=== PATIENT | male | born 1995 | race Caucasian/White ===

== ENCOUNTER 2018-05-29 01:49 | Emergency (ER) | payer OTHER ==
[~2018-05-29] VITALS: Ht 167.6 cm; Wt 59.0 kg
--- OUTSIDE RECORDS SUMMARY | 2018-05-29 01:56 | XMS REPORT ---
Author Author Benja Tim Organization [facility] Address [facility] [place], [place] [id number] Care Team Providers Care Roll Threader Operator Name Role Phone Benja Tim Unavailable PROBLEMS Type Condition ICD9-CM Code [id number] Code Onset Dates Condition Status SNOMED Code Problem Underweight R63.6 Active 819412582 Problem Chronic depression F32.9 Active 012333996 Problem Attention deficit disorder (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 Active 26670081 ALLERGIES No Known Allergies ENCOUNTERS Encounter Location Date Diagnosis [facility] [address] [place] [address] Mar, [facility] [address] [place] [address] Dec, Attention deficit disorder (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 and Underweight R63.6 [facility] [address] [place] [address] Sep, Attention deficit disorder (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 and Underweight R63.6 [facility] [address] [place] [address] Jul, Attention deficit disorder (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 [facility] [address] [place] [address] June, Attention deficit disorder (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 and Underweight R63.6 [facility] [address] [place] [address] May, Attention deficit disorder (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 and Acute nasopharyngitis J00 [facility] [address] [place] [address] Mar, Attention deficit disorder (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 [facility] [address] [place] [address] Mar, [facility] [address] [place] [address] Mar, [facility] [address] [place] [address] Feb, [facility] [address] [place] [address] Feb, Acute bronchitis due to other specified organisms J20.8 ; Attention deficit disorder ( 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 and Chronic depression F32.9 [facility] [address] [place] [address] Feb, Attention deficit disorder (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 and Chronic depression F32.9 [facility] [address] [place] [address] Jan, Attention deficit disorder (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 and Chronic depression F32.9 [facility] [address] [place] [address] Dec, [facility] [address] [place] [address] 18 Dec, 2016 Acute bronchitis due to other specified organisms J20.8 IMMUNIZATIONS No Known Immunizations SOCIAL HISTORY Never Assessed REASON FOR VISIT Follow up PLAN OF CARE Activity Details Follow Up 3 Months Reason: VITAL SIGNS Height 66 in 2017-12-29 Weight 118.2 lbs 2017-12-29 BMI 19.08 kg/m2 2017-12-29 Temperature 98.3 degrees Fahrenheit 2017-12-29 Heart Rate 76 /min 2017-12-29 Respiratory Rate 16 /min 2017-12-29 Oximetry 97 % 2017-12-29 Blood pressure systolic 122 mm Hg 2017-12-29 Blood pressure diastolic 76 mm Hg 2017-12-29 MEDICATIONS Medication Instructions Dosage Frequency Start Date End Date Duration Status Albuterol Sulfate HFA 108 (90 Base) MCG/ACT Inhalation every 6 hrs 2 puffs as needed 6h Active Adderall 20 MG Orally twice a day 1 tablet (to fill 02/27/18 or later) Dec, 30 days Active Adderall 20 MG Orally twice a day 1 tablet (to fill 01/27/18 or later) Dec, 30 days Active Adderall 20 MG Orally twice a day 1 tablet Dec, 30 days Active RESULTS No Results PROCEDURES No Known procedures INSTRUCTIONS MEDICATIONS ADMINISTERED No Known Medications MEDICAL (GENERAL) HISTORY Type Description Date Medical History asthma Surgical History No know Surgical history Hospitalization History No know Hospitalization history
--- OUTSIDE RECORDS SUMMARY | 2018-05-29 01:56 | XMS REPORT ---
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 12667202 ALLERGIES No Known Allergies ENCOUNTERS Encounter Location Date Diagnosis [facility] [address] [place] [address] Dec, [facility] [address] [place] [address] Sep, Attention deficit disorder (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 and Underweight R63.6 [facility] [address] [place] [address] Jul, Attention deficit disorder (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 [facility] [address] [place] [address] June, Attention deficit disorder (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 and Underweight R63.6 [facility] [address] [place] [address] May, Attention deficit disorder (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 and Acute nasopharyngitis J00 [facility] [address] [place] [address] Mar, Attention deficit disorder (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 [facility] [address] [place] [address] Mar, [facility] [address] [place] [address] Mar, [facility] [address] [place] [address] Feb, [facility] [address] [place] [address] Feb, Acute bronchitis due to other specified organisms J20.8 ; Attention deficit disorder ( 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 and Chronic depression F32.9 [facility] [address] [place] [address] Feb, Attention deficit disorder (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 and Chronic depression F32.9 [facility] [address] [place] [address] Jan, Attention deficit disorder (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 and Chronic depression F32.9 [facility] [address] [place] [address] Dec, [facility] [address] [place] [address] Dec, Acute bronchitis due to other specified organisms J20.8 IMMUNIZATIONS No Known Immunizations SOCIAL HISTORY Never Assessed REASON FOR VISIT 3 month f/u PLAN OF CARE Activity Details Follow Up 3 Months Reason: VITAL SIGNS Height 66 in 2017-09-28 Weight 119 lbs 2017-09-28 BMI 19.21 kg/m2 2017-09-28 Temperature 98.3 degrees Fahrenheit 2017-09-28 Heart Rate 59 /min 2017-09-28 Respiratory Rate 16 /min 2017-09-28 Oximetry 98 % 2017-09-28 Blood pressure systolic 129 mm Hg 2017-09-28 Blood pressure diastolic 75 mm Hg 2017-09-28 MEDICATIONS Medication Instructions Dosage Frequency Start Date End Date Duration Status Adderall 20 MG Orally BID 1 tablet Sep, 30 days Active Albuterol Sulfate HFA 108 (90 Base) MCG/ACT Inhalation every 6 hrs 2 puffs as needed 6h Active Adderall 20 MG Orally twice a day 1 tablet (to fill 11/27/17 or later) Sep, Active Adderall 20 MG Orally twice a day 1 tablet (to fill 10/28/17 or later) Sep, Active RESULTS No Results PROCEDURES No Known procedures INSTRUCTIONS MEDICATIONS ADMINISTERED No Known Medications MEDICAL (GENERAL) HISTORY Type Description Date Medical History asthma Surgical History No know Surgical history Hospitalization History No know Hospitalization history
--- OUTSIDE RECORDS SUMMARY | 2018-05-29 01:56 | XMS REPORT ---
Author Author Lulu Leslie Organization [facility] Address [address] [place] [address] [place] [address] Care Team Providers Care President [employer] Name Role Phone Lulu Leslie Unavailable PROBLEMS Unknown Problems ALLERGIES No Information ENCOUNTERS Encounter Location Date Diagnosis [address] [place] [address] [place] [address] Mar Encounter for removal of sutures Z48.[address] [place] [address] [place] [address] Feb Neoplasm of uncertain behavior of skin D48.[address] [place] [address] Feb Furuncle of buttock L02.32 and Other viral warts B07.[address] [place] [address] [place] [address] [place] [address] Apr Furuncle of buttock L02.[address] [place] [address] June Furuncle of buttock L02.32 and Milia L72.0 IMMUNIZATIONS No Known Immunizations SOCIAL HISTORY Never Assessed REASON FOR VISIT Cyst not healing PLAN OF CARE VITAL SIGNS MEDICATIONS Unknown Medications RESULTS No Results PROCEDURES No Known procedures INSTRUCTIONS MEDICATIONS ADMINISTERED No Known Medications MEDICAL (GENERAL) HISTORY Type Description Date Medical History eczema Medical History asthma Surgical History No Surgical history information
--- OUTSIDE RECORDS SUMMARY | 2018-05-29 01:56 | XMS REPORT ---
Author Author Benja Tim Organization [facility] Address [address] [place], [place] [phone] Care Team Providers Care Five Roll Refiner Batch Mixer Name Role Phone Benja Tim Unavailable PROBLEMS Type Condition ICD9-CM Code WDT66-JR Code Onset Dates Condition Status SNOMED Code Problem Attention deficit disorder (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 Active 18404896 Problem Chronic depression F32.9 Active [id number] ALLERGIES No Information SOCIAL HISTORY Never Assessed PLAN OF CARE VITAL SIGNS MEDICATIONS Medication Instructions Dosage Frequency Start Date End Date Duration Status Promethazine-Codeine 6.25-10 MG/5ML Orally every 6 hrs PRN 5 ml as needed Feb, 2 Mar, 2017 6 days Active RESULTS No Results PROCEDURES No Known procedures IMMUNIZATIONS No Known Immunizations MEDICAL (GENERAL) HISTORY Type Description Date Medical History asthma
--- OUTSIDE RECORDS SUMMARY | 2018-05-29 01:56 | XMS REPORT ---
Author Author Dorene Piedra Organization [facility] Address [facility] [place] [address] Care Team Providers Care Instruction Librarian Name Role Phone Dorene Piedra Unavailable PROBLEMS Type Condition ICD9-CM Code [id number] Code Onset Dates Condition Status SNOMED Code Problem Chronic depression F32.9 Active 520104215 Problem Underweight R63.6 Active 165424818 Problem Attention deficit disorder (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 Active 85559125 ALLERGIES No Known Allergies ENCOUNTERS Encounter Location Date Diagnosis [facility] [address] [place] [address] Aug, [facility] [address] [place] [address] Apr, Heart palpitations R00.2 and Chest pain at rest R07.9 [facility] [address] [place] [address] Apr, Chest pain at rest R07.9 and Heart palpitations R00.2 [facility] [address] [place] [address] Apr, Attention deficit disorder (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 and Acute left-sided low back pain without sciatica M54.5 [facility] [address] [place] [address] Feb, Attention deficit disorder (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 [facility] [address] [place] [address] Dec, Attention deficit disorder (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 and Underweight R63.6 [facility] [address] [place] [address] Sep, Attention deficit disorder (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 and Underweight R63.6 [facility] [address] [place] [address] Jul, Attention deficit disorder (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 [facility] [address] [place] [address] June, Attention deficit disorder (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 and Underweight R63.6 [facility] [address] [place] [address] May, Attention deficit disorder (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 and Acute nasopharyngitis J00 [facility] [address] [place] [address] 26 Mar, 2017 Attention deficit disorder (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 [facility] [address] [place] [address] 08 Mar, 2017 [facility] [address] [place] [address] 07 Mar, 2017 [facility] [address] [place] [address] Feb, [facility] [address] [place] [address] Feb, Acute bronchitis due to other specified organisms J20.8 ; Attention deficit disorder ( 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 and Chronic depression F32.9 [facility] [address] [place] [address] Feb, Attention deficit disorder (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 and Chronic depression F32.9 [facility] [address] [place] [address] Jan, Attention deficit disorder (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 and Chronic depression F32.9 [facility] [place] [address] Dec, [facility] [address] [place] [address] Dec, Acute bronchitis due to other specified organisms J20.8 IMMUNIZATIONS No Known Immunizations SOCIAL HISTORY Never Assessed REASON FOR VISIT chest pain PLAN OF CARE Activity Details Follow Up 2 weeks Reason: Pending Test Electrocardiogram (EKG) Future/Pending Procedure Holter Monitor Placement VITAL SIGNS Height 66 in 2018-05-17 Weight 126.8 lbs 2018-05-17 BMI 20.46 kg/m2 2018-05-17 Temperature 97.4 degrees Fahrenheit 2018-05-17 Heart Rate 57 /min 2018-05-17 Respiratory Rate 16 /min 2018-05-17 Oximetry 98 % 2018-05-17 Blood pressure systolic 121 mm Hg 2018-05-17 Blood pressure diastolic 72 mm Hg 2018-05-17 MEDICATIONS Medication Instructions Dosage Frequency Start Date End Date Duration Status Meloxicam 15 MG Orally Once a day 1 tablet 24h Apr, May, 30 day(s) Active Adderall 20 MG Orally twice a day 1 tablet (to fill 08/07/18 or later) 12h Apr, 30 days Active Adderall 20 MG Orally twice a day 1 tablet (to fill 06/07/18 or later) 12h Apr, 30 days Active Albuterol Sulfate HFA 108 (90 Base) MCG/ACT Inhalation every 6 hrs 2 puffs as needed 6h Active Cyclobenzaprine HCl 10 MG Orally Three times a day 1/2-1 tablet as needed 8h 15 Apr, 2018 Active Adderall 20 MG Orally twice a day 1 tablet (to fill 07/07/18 or later) 12h 14 Apr, 2018 30 days Active RESULTS No Results PROCEDURES Procedure Date Ordered Result Body Site ECG MONITOR/RECORD, 24 HRS/HOLTER May 17, 2018 VENIPUNCT, ROUTINE* May 17, 2018 X-RAY EXAM CHEST 2 VIEWS May 17, 2018 ECG/ELECTROCARDIOGRAM, COMPLETE May 17, 2018 SPECIMEN HANDLING May 17, 2018 INSTRUCTIONS MEDICATIONS ADMINISTERED No Known Medications MEDICAL (GENERAL) HISTORY Type Description Date Medical History asthma Surgical History No know Surgical history Hospitalization History increased heart rate 04/2018
--- OUTSIDE RECORDS SUMMARY | 2018-05-29 01:57 | XMS REPORT ---
Author Author Benja Tim Organization [facility] Address [facility] [place], [place] [address] Care Team Providers Care Emt Driver Name Role Phone Benja Tim Unavailable PROBLEMS Type Condition ICD9-CM Code [id number] Code Onset Dates Condition Status SNOMED Code Problem Underweight R63.6 Active 478081980 Problem Attention deficit disorder (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 Active 62633967 Problem Chronic depression F32.9 Active 797758801 ALLERGIES No Information ENCOUNTERS Encounter Location Date Diagnosis [facility] [address] [place] [address] Sep, [facility] [address] [place] [address] Jul, Attention deficit disorder (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 [facility] [address] [place] [address] June, Attention deficit disorder (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 and Underweight R63.6 [facility] [address] [place] [address] May, Attention deficit disorder (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 and Acute nasopharyngitis J00 [facility] [address] [place] [address] Mar, Attention deficit disorder (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 [facility] [address] [place] [address] Mar, [facility] [address] [place] [address] Mar, [facility] [address] [place] [address] Feb, [facility] [address] [place] [address] Feb, Acute bronchitis due to other specified organisms J20.8 ; Attention deficit disorder ( 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 and Chronic depression F32.9 [facility] [address] [place] [address] Feb, Attention deficit disorder (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 and Chronic depression F32.9 [facility] [address] [place] [address] Jan, Attention deficit disorder (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 and Chronic depression F32.9 [facility] [address] [place] [address] Dec, [facility] [address] [place] [address] Dec, Acute bronchitis due to other specified organisms J20.8 IMMUNIZATIONS No Known Immunizations SOCIAL HISTORY Never Assessed REASON FOR VISIT Adderall PLAN OF CARE VITAL SIGNS MEDICATIONS Medication Instructions Dosage Frequency Start Date End Date Duration Status Adderall 20 MG Orally twice a day 1 tablet (to fill 08/27/17 or later) 12h Jul, Active Adderall 20 MG Orally twice a day 1 tablet (to fill 07/28/17 or later) Jul, Active RESULTS No Results PROCEDURES No Known procedures INSTRUCTIONS MEDICATIONS ADMINISTERED No Known Medications MEDICAL (GENERAL) HISTORY Type Description Date Medical History asthma
--- OUTSIDE RECORDS SUMMARY | 2018-05-29 01:57 | XMS REPORT ---
Author Author Benja Tim Organization [facility] Address [address] [place], [place] [address] Care Team Providers Care Potline Monitor Name Role Phone Benja Tim Unavailable PROBLEMS ALLERGIES No Information ENCOUNTERS IMMUNIZATIONS No Known Immunizations SOCIAL HISTORY No smoking Hx information available REASON FOR VISIT PLAN OF CARE VITAL SIGNS MEDICATIONS Unknown Medications RESULTS No Results PROCEDURES No Known procedures INSTRUCTIONS MEDICATIONS ADMINISTERED No Known Medications MEDICAL (GENERAL) HISTORY
--- OUTSIDE RECORDS SUMMARY | 2018-05-29 01:57 | XMS REPORT ---
Author Author Benja Tim Organization [facility] Address [address] [place], [place] [phone] Care Team Providers Care Risk Reduction Counselor Name Role Phone Benja Tim Unavailable PROBLEMS ALLERGIES No Information ENCOUNTERS IMMUNIZATIONS No Known Immunizations SOCIAL HISTORY No smoking Hx information available REASON FOR VISIT PLAN OF CARE VITAL SIGNS MEDICATIONS Unknown Medications RESULTS No Results PROCEDURES No Known procedures INSTRUCTIONS MEDICATIONS ADMINISTERED No Known Medications MEDICAL (GENERAL) HISTORY
--- OUTSIDE RECORDS SUMMARY | 2018-05-29 01:57 | XMS REPORT ---
Author Author Dorene Piedra Organization [facility] Address [address] [place] [address] Care Team Providers Care Arc Welding Machine Operator Name Role Phone Dorene Piedra Unavailable PROBLEMS Unknown Problems ALLERGIES No Known Allergies SOCIAL HISTORY Never Assessed PLAN OF CARE Activity Details Follow Up 1 week if not resolved Reason: VITAL SIGNS Height 66 in 2017-01-10 Weight 120 lbs 2017-01-10 BMI 19.37 kg/m2 2017-01-10 Temperature 97.9 degrees Fahrenheit 2017-01-10 Heart Rate 58 /min 2017-01-10 Respiratory Rate 16 /min 2017-01-10 Oximetry 96 % 2017-01-10 Blood pressure systolic 112 mm Hg 2017-01-10 Blood pressure diastolic 65 mm Hg 2017-01-10 MEDICATIONS Medication Instructions Dosage Frequency Start Date End Date Duration Status Tessalon Perles 100 MG Orally Three times a day PRN 1 capsule as needed Dec, Dec, 10 days Active Promethazine-Codeine 6.25-10 MG/5ML Orally every 6 hrs PRN 5 ml as needed Dec, Dec, 6 days Active Mucinex Active NyQuil Active Azithromycin 250 MG Orally Once a day 2 tablets on the first day, then 1 tablet daily for 4 days 24h Dec, Dec, 5 day(s) Active DayQuil Multi-Symptom Active Albuterol Sulfate HFA 108 (90 Base) MCG/ACT Inhalation every 6 hrs 2 puffs as needed 6h Active RESULTS No Results PROCEDURES No Known procedures IMMUNIZATIONS No Known Immunizations MEDICAL (GENERAL) HISTORY Type Description Date Medical History asthma
--- OUTSIDE RECORDS SUMMARY | 2018-05-29 01:57 | XMS REPORT ---
Author Author Benja Tim Organization [facility] Address [address] [place], [place] [phone] Care Team Providers Care Prototype Machine Operator Name Role Phone Benja Tim Unavailable PROBLEMS Type Condition ICD9-CM Code [id number] Code Onset Dates Condition Status SNOMED Code Problem Attention deficit disorder (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 Active 54442623 Problem Chronic depression F32.9 Active 451489844 ALLERGIES No Known Allergies SOCIAL HISTORY Never Assessed PLAN OF CARE Activity Details Follow Up 1 month Reason: VITAL SIGNS Height 66 in 2017-02-11 Weight 119.8 lbs 2017-02-11 BMI 19.33 kg/m2 2017-02-11 Temperature 98.2 degrees Fahrenheit 2017-02-11 Heart Rate 61 /min 2017-02-11 Respiratory Rate 16 /min 2017-02-11 Oximetry 96 % 2017-02-11 Blood pressure systolic 132 mm Hg 2017-02-11 Blood pressure diastolic 69 mm Hg 2017-02-11 MEDICATIONS Medication Instructions Dosage Frequency Start Date End Date Duration Status Citalopram Hydrobromide 20 MG Orally Once a day 1 tablet 24h Jan, 30 day(s) Active Vyvanse 40 MG Orally Once a day 1 capsule in the morning 24h Jan, Active Albuterol Sulfate HFA 108 (90 Base) MCG/ACT Inhalation every 6 hrs 2 puffs as needed 6h Active RESULTS No Results PROCEDURES No Known procedures IMMUNIZATIONS No Known Immunizations MEDICAL (GENERAL) HISTORY Type Description Date Medical History asthma
--- OUTSIDE RECORDS SUMMARY | 2018-05-29 01:57 | XMS REPORT ---
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 Active 43924181 Problem Chronic depression F32.9 Active 713539297 ALLERGIES No Known Allergies ENCOUNTERS Encounter Location Date Diagnosis [facility] [address] [place] [address] Sep, [facility] [address] [place] [address] June, Attention deficit disorder (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 and Underweight R63.6 [facility] [address] [place] [address] May, Attention deficit disorder (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 and Acute nasopharyngitis J00 [facility] [address] [place] [address] Mar, Attention deficit disorder (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 [facility] [address] [place] [address] Mar, [facility] [address] [place] [address] Mar, [facility] [address] [place] [address] Feb, [facility] [address] [place] [address] Feb, Acute bronchitis due to other specified organisms J20.8 ; Attention deficit disorder ( 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 and Chronic depression F32.9 [facility] [address] [place] [address] Feb, Attention deficit disorder (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 and Chronic depression F32.9 [facility] [address] [place] [address] Jan, Attention deficit disorder (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 and Chronic depression F32.9 [facility] [address] [place] [address] Dec, [facility] [address] [place] [address] Dec, Acute bronchitis due to other specified organisms J20.8 IMMUNIZATIONS No Known Immunizations SOCIAL HISTORY Never Assessed REASON FOR VISIT Medication refill PLAN OF CARE Activity Details Follow Up 3 Months Reason: VITAL SIGNS Height 66 in 2017-06-27 Weight 117 lbs 2017-06-27 BMI 18.88 kg/m2 2017-06-27 Temperature 97.8 degrees Fahrenheit 2017-06-27 Heart Rate 58 /min 2017-06-27 Respiratory Rate 16 /min 2017-06-27 Oximetry 97 % 2017-06-27 Blood pressure systolic 115 mm Hg 2017-06-27 Blood pressure diastolic 60 mm Hg 2017-06-27 MEDICATIONS Medication Instructions Dosage Frequency Start Date End Date Duration Status Adderall 20 MG Orally twice a day 1 tablet (to fill 08/27/17 or later) June, Active Albuterol Sulfate HFA 108 (90 Base) MCG/ACT Inhalation every 6 hrs 2 puffs as needed 6h Active Adderall 20 MG Orally BID 1 tablet June, 30 days Active Adderall 20 MG Orally twice a day 1 tablet (to fill 07/28/17 or later) June, Active RESULTS No Results PROCEDURES No Known procedures INSTRUCTIONS MEDICATIONS ADMINISTERED No Known Medications MEDICAL (GENERAL) HISTORY Type Description Date Medical History asthma
[2018-05-29] MEDS ORDERED: SULF1TAB35 PO (02:42)
[2018-05-29] MEDS ORDERED: LIDOCAINE PF 2% 5 ML (XYLOCAINE) VIAL ONE (02:42)
--- NOTE | 2018-05-29 02:42 | ED Upper Extremity ---
General Chief Complaint: Laceration Stated Complaint: CUT FINGER ON SODA CAN Source: patient History of Present Illness Date Seen by Provider: May 29, 2018 Time Seen by Provider: 02:30 Initial Comments PT ARRIVES VIA POV WITH 2 FRIENDS IN ROOM STATES AROUND MIDNIGHT, HE WAS THROWING A CAN AND HE CUT HIS RIGHT INDEX FINGER ON THE CAN PT STATES IT HAS CONTINUED TO BLEED NO PARESTHESIAS OR MOTOR DEFICITS PT IS RIGHT HANDED NO PRIOR INJURY TO THIS FINGER LAST TETANUS IS UNKNOWN--HAS NOT HAD ONE SINCE GRADUATING [employer] PT HAS HAD "6 OR 7" BEERS TONIGHT PCP: IN [place]--PT HERE VISITING FOR THE NIGHT FROM [place]--HAD ONLY BEEN IN [place] SINCE 2300 TONIGHT Allergies and Home Medications Allergies Coded Allergies: No Known Drug Allergies (Unverified , 05/29/18) Home Medications Sulfamethoxazole/Trimethoprim 1 Each Tablet, 1 EACH PO BID Prescribed by: SHAYNE WAN on 05/29/18 0242 Patient Home Medication List Home Medication List Reviewed: Yes Review of Systems Constitutional: no symptoms reported Musculoskeletal: see HPI Skin: see HPI Psychiatric/Neurological: No Symptoms Reported Past Msuekjh-Fctfsk-Baxdwv Hx Patient Social History Alcohol Use: Regular Use Recreational Drug Use: No Smoking Status: Never a Smoker Recent Foreign Travel: No Contact w/Someone Who Travel: No Immunizations Up To Date Tetanus Booster (TDap): More than 5yrs Past Medical History Surgeries: No Respiratory: Yes Asthma Cardiac: No Neurological: No Genitourinary: No Gastrointestinal: No Musculoskeletal: No Endocrine: No HEENT: No Cancer: No Psychosocial: No Integumentary: No Blood Disorders: No Physical Exam Vital Signs Vital Signs - First Documented 05/29/18 02:17 Temp 96.9 Pulse 94 Resp 16 B/P (MAP) 115/71 (86) Pulse Ox 97 O2 Delivery Room Air Capillary Refill : Height, Weight, BMI Height: '" Weight: lbs. oz. kg; BMI Method: General Appearance: WD/WN, no apparent distress, other (STRONG ODOR OF ETOH, SPEECH CLEAR AND CURSING CONTINUOUSLY, GAIT STEADY) Hand: Right (INDEX FINGER PAD WITH 2 CM CURVED, SUPERFICIAL FLAP-TYPE LACERATION--WITH AT LEAST 75 % OF SKIN AVULSED --HELD ON BY SMALL PEDICLE OF TISSUE. NO NECROTIC TISSUE NOTED. NO ACTIVE BLEEDING AT THIS TIME. MOTOR/ SENSORY/VASCULAR INTACT) Procedures/Interventions Other Wound Location RIGHT INDEX FINGER Wound Length (cm): 2 Wound's Depth, Shape: superficial, flap Wound Explored: clean Betadine Prep?: No (BETASEPT) Anesthesia: 1% Lidocaine (2% LIDOCAINE) Suture: Ethlion Suture Size: 4-0 Number of Sutures: 5 Layer Closure?: 1 Sterile Dressing Applied?: Yes Progress PT ADVISED THAT FLAP MAY NOT BE VITALIZED AND EXPLAINED ANTICIPATED COURSE Progress/Results/Core Measures Results/Orders My Orders Orders - SHAYNE WAN DO Wound Dressing-Ed (05/29/18 02:34) Dipht,Pertuss(Acell),Tet Adult (Boostrix (05/29/18 02:45) Lidocaine 2% Injection 20 Ml (Xylocaine (05/29/18 02:45) Lidocaine 2% Pf 5 Ml (Xylocaine 2% Pf) (05/29/18 02:42) Rx-Trimeth/Sulfameth Ds Tab (Rx-Bactrim/ (05/29/18 03:25) Rx-Trimeth/Sulfameth Ds Tab (Rx-Bactrim/ (05/29/18 03:23) Medications Given in ED Current Medications Medications Dose Ordered Sig/Anthony Route Start Time Stop Time Status Last Admin Dose Admin Diphtheria/ Tetanus/Acell Pertussis 0.5 ml ONCE ONCE IM 05/29/18 02:45 05/29/18 02:46 DC 05/29/18 02:47 0.5 ML Lidocaine HCl 5 ml STK-MED ONCE .ROUTE 05/29/18 02:42 05/29/18 02:45 DC 05/29/18 03:00 5 ML Vital Signs/I&O 05/29/18 05/29/18 02:17 03:35 Temp 96.9 96.9 Pulse 94 76 Resp 16 16 B/P (MAP) 115/71 (86) 111/80 (90) Pulse Ox 97 99 O2 Delivery Room Air Room Air Departure Impression Primary Impression: Laceration of right index finger Additional Impression: Nujxbbpmhq-igbsxizuv-rkfdvbt (DPT) vaccination administered at current visit Disposition: 01 HOME, SELF-CARE Condition: Stable Departure-Patient Inst. Patient Instructions: Laceration Repair With Stitches (DC), Diphtheria and Tetanus Toxoids, and Acellular Pertussis Vaccine Add. Discharge Instructions: LEAVE DRESSING IN PLACE FOR 24 HOURS, THEN CLEAN TWICE A DAY WITH SOAP AND WATER ON A Q-TIP, OTHERWISE KEEP CLEAN AND DRY SUTURES OUT IN 10 DAYS--RETURN TO ER FOR REMOVAL. DO NOT REMOVE THEM YOURSELF TYLENOL AND MOTRIN NEEDED FOR PAIN RETURN TO ER IF PROBLEMS All discharge instructions reviewed with patient and/or family. Voiced understanding. Scripts Sulfamethoxazole/Trimethoprim (Bactrim Ds Tablet) 1 Each Tablet 1 EACH PO BID, #20 TAB Prov: SHAYNE WAN DO 05/29/18 SHAYNE WAN DO May 29, 2018 02:42
[2018-05-29] MEDS ORDERED: LIDOCAINE 2% 20 ML (XYLOCAINE) VIAL INJ ONE (02:45)
[2018-05-29] MEDS ORDERED: TETANUS,DIPTH,PERTUSS P/F (BOOSTRIX) 0.5 ML VIAL IM ONE (02:45)
[2018-05-29] MEDS ORDERED: RX-TRIMETH/SULFA. 160-800 MG (BACTRIM DS) TAB PPK#2 PO ONE (03:23)
[2018-05-29] MEDS ORDERED: RX-TRIMETH/SULFA. 160-800 MG (BACTRIM DS) TAB PPK#2 PO STA (03:25)
[2018-05-29 03:35] VITALS: BP 111/80
== END 2018-05-29 03:35 | disposition home or self-care (01) ==
LOC: ER 01:53
DX: S61.210A Laceration without foreign body of right index finger without damage to nail, initial encounter (principal); J45.909 Unspecified asthma, uncomplicated; Z23 Encounter for immunization; W26.8XXA Contact with other sharp object(s), not elsewhere classified, initial encounter
CPT/HCPCS: 12002; 64450; 90471; 90715

== ENCOUNTER 2019-10-11 15:22 | Emergency (ER) | payer OTHER ==
[~2019-10-11] VITALS: Ht 167 cm; Wt 57.0 kg
[~2019-10-11 15:22] MED LIST: SULF1TAB35 PO
[2019-10-11] MEDS ORDERED: LIDOCAINE 1% INJ 20 ML 20 ML VIAL INJ ONE (16:15)
--- NOTE | 2019-10-11 16:35 | ED Upper Extremity ---
General Chief Complaint: Laceration Stated Complaint: LACERATION TO FINGER Nursing Triage Note: PT STATES HE WAS TRYING TO SHUT A WINDOW AND THE GLASS BROKE CUTTING HIS 5TH DIGIT ON THE LT HAND, REPAIR NEEDED. Nursing Sepsis Screen: No Definite Risk History of Present Illness Date Seen by Provider: Oct 11, 2019 Time Seen by Provider: 15:55 Initial Comments 23-year-old male evaluated for laceration to his fifth finger on the left hand after cutting it on glass from a window. Last tetanus vaccine was one year ago at this facility. No other injuries experienced today. Onset: just prior to arrival Pain/Injury Location: left 5th finger Method of Injury: incised Allergies and Home Medications Allergies Coded Allergies: No Known Drug Allergies (Unverified , 05/29/18) Home Medications Sulfamethoxazole/Trimethoprim 1 Each Tablet, 1 EACH PO BID Prescribed by: SHAYNE WAN on 05/29/18 0242 Patient Home Medication List Home Medication List Reviewed: Yes Review of Systems Constitutional: no symptoms reported, see HPI Skin: see HPI, other (laceration left fifth finger) All Other Systems Reviewed Negative Unless Noted: Yes Past Trjhjon-Xtpetu-Nasnyb Hx Past Med/Social Hx: Reviewed Nursing Past Med/Soc Hx Patient Social History Alcohol Use: Occasionally Uses Number of Drinks Today: AA Alcohol Beverage of Choice: Beer Recreational Drug Use: Yes (THC) Smoking Status: Current Someday Smoker 2nd Hand Smoke Exposure: No Recent Foreign Travel: No Contact w/Someone Who Travel: No Recent Infectious Disease Expo: No Recent Hopitalizations: No Immunizations Up To Date Tetanus Booster (TDap): More than 5yrs Seasonal Allergies Seasonal Allergies: Yes Past Medical History Surgeries: Yes (CYST REMOVAL, DENTAL) Respiratory: Yes Asthma Cardiac: No Neurological: No Genitourinary: No Gastrointestinal: No Musculoskeletal: No Endocrine: No HEENT: No Cancer: No Psychosocial: Yes ADD/ADHD Integumentary: Yes Eczema Blood Disorders: No Physical Exam Vital Signs Vital Signs - First Documented 10/11/19 15:41 Temp 37.1 Pulse 78 Resp 18 B/P (MAP) 142/81 (101) Pulse Ox 97 O2 Delivery Room Air Capillary Refill : Less Than 3 Seconds Height, Weight, BMI Height: 5'6.00" Weight: 130lbs. oz. 58.362494bj; 20.00 BMI Method:Stated General Appearance: WD/WN, no apparent distress Neck: non-tender, full range of motion, supple, normal inspection Cardiovascular: normal peripheral pulses, regular rate, rhythm Respiratory: chest non-tender, lungs clear, normal breath sounds Hand: normal ROM, Left, abrasions (left fifth finger, ulnar side, PIP) Neurologic/Tendon: normal sensation, normal motor functions, normal tendon functions Neurologic/Psychiatric: no motor/sensory deficits, alert, normal mood/affect, oriented x 3 Skin: normal color, warm/dry Procedures/Interventions Wound Location: Upper Extremities (left 5th finger) Wound Length (cm): 1.5 Wound's Depth, Shape: superficial Wound Explored: clean Irrigated w/ Saline (ccs): 500 Betadine Prep?: Yes Anesthesia: 1% Lidocaine Volume Anesthetic (ccs): 4 Suture: Ethlion Suture Size: 4-0 Number of Sutures: 4 Sterile Dressing Applied?: Yes Patient tolerated procedure well. Wound well approximated. Bulky sterile d ressing applied. Progress/Results/Core Measures Results/Orders My Orders Orders - KYA TOMPKINS Lidocaine 1% Inj 20 Ml (Xylocaine 1% Inj (10/11/19 16:15) Vital Signs/I&O 10/11/19 10/11/19 15:41 16:40 Temp 37.1 37.1 Pulse 78 78 Resp 18 18 B/P (MAP) 142/81 (101) 142/81 (101) Pulse Ox 97 97 O2 Delivery Room Air Room Air Blood Pressure Mean: 101 Departure Impression Primary Impression: Laceration of left little finger Qualified Codes: S61.217A - Laceration without foreign body of left little finger without damage to nail, initial encounter Disposition: 01 HOME, SELF-CARE Condition: Improved Departure-Patient Inst. Decision time for Depature: 16:20 Referrals: NO,LOCAL PHYSICIAN (PCP/Family) Primary Care Physician Patient Instructions: Laceration Repair With Stitches (DC) Add. Discharge Instructions: Keep the dressing dry and in place for 24 hours, you may re-inforce if needed. Do not submerge the wound in standing water (tub, pool, sink, mantilla, etc). Leave sutures in place, return to Emergency Dept or [facility] in 7-10 days for removal. You may shower, do not have water hit directly over wound. Clean with peroxide after shower, leave open to air when at home, cover with dressing or band-aid when out of the house. Watch for signs of infection: Redness, increased tenderness, warmth, discolored drainage or foul smelling drainage. Return to the emergency department for new, urgent health care problems. All discharge instructions reviewed with patient and/or family. Voiced understanding. Copy Copies To 1: RUSSELL DYER MD, AMY ARNP Oct 11, 2019 16:35
[2019-10-11 16:40] VITALS: BP 142/81
--- OUTSIDE RECORDS SUMMARY | 2019-10-11 17:58 | XMS REPORT ---
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 Active 80197608 ALLERGIES No Known Allergies ENCOUNTERS Encounter Location Date Diagnosis [facility] [address] [place] [id number] June, [facility] [address] [place] [address] Mar, Attention deficit disorder (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 [facility] [address] [place] [address] Dec, Attention deficit disorder (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 ; Pilonidal cyst L05.91 and Tinea cruris B35.6 [facility] [address] [place] [address] Oct, UNKNOWN Sep, [facility] [address] [place] [address] Sep, Attention deficit disorder (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 [facility] [address] [place] [address] Aug, Attention deficit disorder (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 and Pilonidal cyst L05.91 [facility] [address] [place] [address] Apr, Heart palpitations R00.2 and Chest pain at rest R07.9 [facility] [address] [place] [address] Apr, Chest pain at rest R07.9 and Heart palpitations R00.2 [facility] [address] [place] [address] Apr, Attention deficit disorder (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 and Acute left-sided low back pain without sciatica M54.5 [facility] [address] [place] [address] Feb, Attention deficit disorder (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 [facility] [address] [place] [address] Dec, Attention deficit disorder (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 and Underweight R63.6 [facility] [address] [place] [address] Sep, Attention deficit disorder (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 and Underweight R63.6 [facility] [address] [place] [address] Jul, Attention deficit disorder (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 [facility] [address] [place] [address] June, Attention deficit disorder (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 and Underweight R63.6 [facility] [address] [place] [address] May, Attention deficit disorder (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 and Acute nasopharyngitis J00 [facility] [address] [place] [address] Mar, Attention deficit disorder (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 [facility] [address] [place] [address] Mar, [facility] [address] [place] [address] Mar, [facility] [address] [place] [address] Feb, [facility] [address] [place] [address] Feb, Acute bronchitis due to other specified organisms J20.8 ; Attention deficit disorder (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 and Chronic depression F32.9 [facility] [address] [place] [address] Feb, Attention deficit disorder (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 and Chronic depression F32.9 [facility] [address] [place] [address] Jan, Attention deficit disorder (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 and Chronic depression F32.9 [facility] [address] [place] [address] Dec, [facility] [address] [place] [address] Dec, Acute bronchitis due to other specified organisms J20.8 IMMUNIZATIONS No Known Immunizations SOCIAL HISTORY Never Assessed REASON FOR VISIT med refill PLAN OF CARE Activity Details Follow Up 3 Months Reason: VITAL SIGNS Height 66 in 2019-04-14 Weight 119.0 lbs 2019-04-14 BMI 19.21 kg/m2 2019-04-14 Temperature 98.3 degrees Fahrenheit 2019-04-14 Heart Rate 55 /min 2019-04-14 Respiratory Rate 16 /min 2019-04-14 Oximetry 97 % 2019-04-14 Blood pressure systolic 104 mm Hg 2019-04-14 Blood pressure diastolic 62 mm Hg 2019-04-14 MEDICATIONS Medication Instructions Dosage Frequency Start Date End Date Duration S tacos Albuterol Sulfate HFA 108 (90 Base) MCG/ACT Inhalation every 6 hrs 2 puffs as needed 6h Active Adderall 20 MG Orally twice a day 1 tablet (to fill 04/14/19 or late r) 12Mar, 30 days Active Timolol Maleate 0.5 % Ophthalmic Once a day as directed 24h Not-Taking Cephalexin 500 MG Orally every 12 hrs 1 capsule 12h Not-Taking Adderall 20 MG Orally twice a day 1 tablet (to fill 06/13/19 or late r) Mar, 30 days Active Cyclobenzaprine HCl 10 MG Orally Three times a day 1/2-1 tablet as needed 8h 15 Apr, 2018 Not-Taking Arkoma 5-325 MG Orally every 6 hrs 1 tablet as needed 6h Dec, 9 Not-Taking Adderall 20 MG Orally twice a day 1 tablet (to fill 05/13/19 or late r) 12Mar, 30 days Active Tramadol HCl 50 MG Orally Once a day 1 tablet as needed 24h 11 Aug, 2018 Not-Taking RESULTS No Results PROCEDURES No Known procedures INSTRUCTIONS MEDICATIONS ADMINISTERED No Known Medications MEDICAL (GENERAL) HISTORY Type Description Date Medical History asthma Surgical History cyst removal from back 09/01/18 Surgical History Bascon Cleft Lift 12/2018 Hospitalization History increased heart rate 04/2018
--- OUTSIDE RECORDS SUMMARY | 2019-10-11 17:58 | XMS REPORT ---
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 Active 16463208 Problem Chronic depression F32.9 Active 1 00678162 ALLERGIES No Known Allergies ENCOUNTERS Encounter Location Date Diagnosis [facility] [address] [place] [phone] 13 Aug, 2 020 [facility] [address] [place] [address] 09 Aug, 2 020 Exposure to STD Z20.2 and Exposure to herpes Z20.828 [facility] [address] [place] [phone] 12 June, 2 020 Attention deficit disorder (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 and Muscle spasm M62.838 UNKNOWN Apr, [facility] [address] [place] [address] 17 Apr, 2 020 [facility] [address] [place] [address] Mar, 2 020 Attention deficit disorder (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 [facility] [address] [place] [address] Dec, 2 019 Attention deficit disorder (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 ; Pilonidal cyst L05.91 and Tinea cruris B35.6 [facility] [address] [place] [phone] 05 Oct, 2 019 UNKNOWN Sep, [facility] [address] [place] [address] Sep, 2 019 Attention deficit disorder (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 [facility] [address] [place] [phone] Aug, 2 019 Attention deficit disorder (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 and Pilonidal cyst L05.91 [facility] [address] [place] [address] 27 Mar, 2 019 Heart palpitations R00.2 and Chest pain at rest R07.9 [facility] [address] [place] [address] 25 Mar, 2 019 Chest pain at rest R07.9 and Heart palpitations R00.2 [facility] [address] [place] [address] 14 Mar, 2 019 Attention deficit disorder (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 and Acute left-sided low back pain without sciatica M54.5 [facility] [address] [place] [address] 15 Yadiel, 2 019 Attention deficit disorder (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 [facility] [address] [place] [address] 06 Dec, 2 018 Attention deficit disorder (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 and Underweight R63.6 [facility] [address] [place] [address] 06 Sep, 2 018 Attention deficit disorder (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 and Underweight R63.6 [facility] [address] [place] [address] 01 Arturo, 2 018 Attention deficit disorder (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 [facility] [address] [place] [address] 05 June, 2 018 Attention deficit disorder (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 and Underweight R63.6 [facility] [address] [place] [address] 04 May, 2 018 Attention deficit disorder (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 and Acute nasopharyngitis J00 [facility] [address] [place] [address] 26 Feb, 2 018 Attention deficit disorder (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 [facility] [address] [place] [address] 08 Feb, 2 018 [facility] [address] [place] [address] 07 b, 2 018 [facility] [address] [place] [address] 27 Yadiel, 2 018 [facility] [address] [place] [address] 23 Yadiel, 2 018 Acute bronchitis due to other specified organisms J20.8 ; Attention deficit disorder (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 and Chronic depression F32.9 [facility] [address] [place] [address] 08 Yadiel, 2 018 Attention deficit disorder (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 and Chronic depression F32.9 [facility] [address] [place] [address] 20 Dec, 2 017 Attention deficit disorder (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 and Chronic depression F32.9 [facility] [address] [place] [address] 28 Nov, 2 017 [facility] [address] [place] [address] 18 Nov, 2 017 Acute bronchitis due to other specified organisms J20.8 IMMUNIZATIONS No Known Immunizations SOCIAL HISTORY Never Assessed REASON FOR VISIT std check PLAN OF CARE Activity Details Follow Up 2 - 3 Days Reason:results VITAL SIGNS Height 66 in 2019-09-01 Weight 122.4 lbs 2019-09-01 BMI 19.75 kg/m2 2019-09-01 Temperature 98.3 degrees Fahrenheit 2019-09-01 Heart Rate 84 /min 2019-09-01 Respiratory Rate 20 /min 2019-09-01 Oximetry 97 % 2019-09-01 Blood pressure systolic 111 mm Hg 2019-09-01 Blood pressure diastolic 70 mm Hg 2019-09-01 MEDICATIONS Medication Instructions Dosage Frequency Start Date End Date Duration S tatus Albuterol Sulfate HFA 108 (90 Base) MCG/ACT Inhalation every 6 hrs 2 puffs as needed 6h Active Adderall 20 MG Orally twice a day 1 tablet (to fill 5/20/20 or late r) 12h June, 30 days Active Adderall 20 MG Orally twice a day 1 tablet (to fill 6/20/20 or late r) 12h June, 30 days Active Adderall 20 MG Orally twice a day 1 tablet (to fill 7/20/20 or late r) 12h June, 30 days Active Cyclobenzaprine HCl 10 MG Orally Three times a day 1/2-1 tablet as needed 8h Apr, Active RESULTS No Results PROCEDURES Procedure Date Ordered Result Body Site VENIPUNCT, ROUTINE* September 01, 2019 SPECIMEN HANDLING September 01, 2019 INSTRUCTIONS MEDICATIONS ADMINISTERED No Known Medications MEDICAL (GENERAL) HISTORY Type Description Date Medical History asthma Surgical History cyst removal from back 09/01/18 Surgical History Bascon Cleft Lift 12/2018 Hospitalization History increased heart rate 04/2018
--- OUTSIDE RECORDS SUMMARY | 2019-10-11 17:58 | XMS REPORT ---
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 Active 89968546 Problem Chronic depression F32.9 Active 1 99851040 ALLERGIES No Information ENCOUNTERS Encounter Location Date Diagnosis [facility] [address] [place] [address] 13 Aug, 2 020 [facility] [address] [place] [address] 09 Aug, 2 020 Exposure to STD Z20.2 and Exposure to herpes Z20.828 [facility] [address] [place] [address] 12 June, 2 020 Attention deficit disorder (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 and Muscle spasm M62.838 UNKNOWN Apr, [facility] [address] [place] [address] 17 Apr, 2 020 [facility] [address] [place] [address] 20 Mar, 2 020 Attention deficit disorder (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 [facility] [address] [place] [address] Dec, 2 019 Attention deficit disorder (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 ; Pilonidal cyst L05.91 and Tinea cruris B35.6 [facility] [address] [place] [address] 05 Oct, 2 019 UNKNOWN Sep, [facility] [address] [place] [address] Sep, 2 019 Attention deficit disorder (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 [facility] [address] [place] [address] Aug, 2 019 Attention deficit disorder (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 and Pilonidal cyst L05.91 [facility] [address] [place] [address] 27 Mar, 2 019 Heart palpitations R00.2 and Chest pain at rest R07.9 [facility] [address] [place] [address] 25 Mar, 2 019 Chest pain at rest R07.9 and Heart palpitations R00.2 [facility] [address] [place] [address] 14 Mar, 2 019 Attention deficit disorder (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 and Acute left-sided low back pain without sciatica M54.5 [facility] [address] [place] [address] 15 Yadiel, 2 019 Attention deficit disorder (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 [facility] [address] [place] [address] 06 Dec, 2 018 Attention deficit disorder (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 and Underweight R63.6 [facility] [address] [place] [address] 06 Sep, 2 018 Attention deficit disorder (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 and Underweight R63.6 [facility] [address] [place] [address] 01 Arturo, 2 018 Attention deficit disorder (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 [facility] [address] [place] [address] 05 June, 2 018 Attention deficit disorder (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 and Underweight R63.6 [facility] [address] [place] [address] 04 May, 2 018 Attention deficit disorder (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 and Acute nasopharyngitis J00 [facility] [address] [place] [address] 26 Feb, 2 018 Attention deficit disorder (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 [facility] [address] [place] [address] 08 Feb, 2 018 [facility] [address] [place] [address] 07 b, 2 018 [facility] [address] [place] [address] 27 Yadiel, 2 018 [facility] [address] [place] [address] 23 Yadiel, 2 018 Acute bronchitis due to other specified organisms J20.8 ; Attention deficit disorder (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 and Chronic depression F32.9 [facility] [address] [place] [address] 08 Yadiel, 2 018 Attention deficit disorder (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 and Chronic depression F32.9 [facility] [address] [place] [address] 20 Dec, 2 017 Attention deficit disorder (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 and Chronic depression F32.9 [facility] [address] [place] [address] 28 Nov, 2 017 [facility] [address] [place] [address] 18 Nov, 2 017 Acute bronchitis due to other specified organisms J20.8 IMMUNIZATIONS No Known Immunizations SOCIAL HISTORY Never Assessed REASON FOR VISIT Lab results PLAN OF CARE VITAL SIGNS MEDICATIONS Unknown Medications RESULTS No Results PROCEDURES No Known procedures INSTRUCTIONS MEDICATIONS ADMINISTERED No Known Medications MEDICAL (GENERAL) HISTORY Type Description Date Medical History asthma Surgical History cyst removal from back 09/01/18 Surgical History Bascon Cleft Lift 12/2018 Hospitalization History increased heart rate 04/2018
--- OUTSIDE RECORDS SUMMARY | 2019-10-11 17:58 | XMS REPORT ---
Author Author Alton Leslie Organization [facility] Address [address] [place] [address] [place] [address] Care Team Providers Care Risk Tech Name Role Phone Mariama Lulu Unavailable PROBLEMS Unknown Problems ALLERGIES No Information ENCOUNTERS Encounter Location Date Diagnosis [facility] [address] [place] [address] [place] [address] Jul, [address] [place] [address] June, Encounter for surgical aftercare followi ng surgery on the skin and subcutaneous tissue Z48.[address] [place] [address] Apr, [address] [place] [address] Mar, Encounter for removal of sutures Z48.[address] [place] [address] Feb, [address] [place] [address] Feb, Neoplasm of uncertain behavior of skin D 48.[address] [place] [address] Feb, Furuncle of buttock L02.32 and Other vir al warts B07.[address] [place] [address] Feb, [address] [place] [address] May, [address] [place] [address] Apr, Furuncle of buttock L02.[address] [place] [address] June, Furuncle of buttock L02.32 and Milia L72 .0 IMMUNIZATIONS No Known Immunizations SOCIAL HISTORY Never Assessed REASON FOR VISIT Wound Check PLAN OF CARE Activity Details Pending Test CULTURE, AEROBIC AND ANAEROB IC W/GRAM STAIN VITAL SIGNS MEDICATIONS Medication Instructions Dosage Frequency Start Date End Date Duration S tatus Clindamycin Phosphate 1 % Externally Twice a day 1 application t o affected area 12h 30 days Active Doxycycline Hyclate 100 MG Orally Twice a day with sergei d and a full glass of water 1 capsule Feb, 14 days Active Adderall Active Albuterol Active RESULTS No Results PROCEDURES No Known procedures INSTRUCTIONS MEDICATIONS ADMINISTERED No Known Medications MEDICAL (GENERAL) HISTORY Type Description Date Medical History eczema Medical History asthma Surgical History No Surgical history information
--- OUTSIDE RECORDS SUMMARY | 2019-10-11 17:58 | XMS REPORT ---
Author Author Alton Tim Organization [facility] Address [address] [place] [address] Care Team Providers Care Ore Dryer Name Role Phone Benja Tim Unavailable PROBLEMS Type Condition ICD9-CM Code UQU60-ME Code Onset Dates Condition S tatus SNOMED Code Problem Chronic depression F32.9 Active 1 43781214 Problem Underweight R63.6 Active 90365409 6 Problem Attention deficit disorder (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 Active 06445837 ALLERGIES No Information ENCOUNTERS Encounter Location Date Diagnosis [facility] [address] [place] [address] June, UNKNOWN Apr, [facility] [place] [address] [place] [address] Apr, [facility] [place] [address] [place] [address] Mar, Attention deficit disorder (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 [facility] [address] [place] [address] Dec, Attention deficit disorder (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 ; Pilonidal cyst L05.91 and Tinea cruris B35.6 [facility] [address] [place] [address] Oct, UNKNOWN Sep, [facility] [place] [address] Sep, Attention deficit disorder (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 [facility] [address] [place] [address] Aug, Attention deficit disorder (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 and Pilonidal cyst L05.91 [facility] [place] [address] [place] [address] Apr, Heart palpitations R00.2 and Chest pain at rest R07.9 [facility] [address] [place] [address] Apr, Chest pain at rest R07.9 and Heart palpitations R00.2 [facility] [address] [place] [address] Apr, Attention deficit disorder (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 and Acute left-sided low back pain without sciatica M54.5 [facility] [address] [place] [address] Feb, Attention deficit disorder (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 [facility] [address] [place] [address] Dec, Attention deficit disorder (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 and Underweight R63.6 [facility] [place] [address] Sep, Attention deficit disorder (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 and Underweight R63.6 [facility] [address] [place] [address] Jul, Attention deficit disorder (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 [facility] [address] [place] [address] June, Attention deficit disorder (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 and Underweight R63.6 [facility] [address] [place] [address] May, Attention deficit disorder (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 and Acute nasopharyngitis J00 [facility] [address] [place] [address] Mar, Attention deficit disorder (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 [facility] [address] [place] [address] Mar, [facility] [place] [address] Mar, [facility] [address] [place] [address] Feb, [facility] [address] [place] [address] Feb, Acute bronchitis due to other specified organisms J20.8 ; Attention deficit disorder (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 and Chronic depression F32.9 [facility] [address] [place] [address] Feb, Attention deficit disorder (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 and Chronic depression F32.9 [facility] [address] [place] [address] Jan, Attention deficit disorder (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 and Chronic depression F32.9 [facility] [address] [place] [address] Dec, [facility] [address] [place] [address] Dec, Acute bronchitis due to other specified organisms J20.8 IMMUNIZATIONS No Known Immunizations SOCIAL HISTORY Never Assessed REASON FOR VISIT Adderall early fill PLAN OF CARE VITAL SIGNS MEDICATIONS Medication Instructions Dosage Frequency Start Date End Date Duration S tatus Adderall 20 MG Orally twice a day 1 tablet (to fill now) 12h 17 Apr, 2019 30 days Active RESULTS No Results PROCEDURES No Known procedures INSTRUCTIONS MEDICATIONS ADMINISTERED No Known Medications MEDICAL (GENERAL) HISTORY Type Description Date Medical History asthma Surgical History cyst removal from back 09/01/18 Surgical History Bascon Cleft Lift 12/2018 Hospitalization History increased heart rate 04/2018
--- OUTSIDE RECORDS SUMMARY | 2019-10-11 17:58 | XMS REPORT | Clinical Summary ---
Author Author [facility] Organization [facility] Address [address] [place] [address] Phone Care Team Providers Care Gse Mechanic Name Role Phone HINA NATARAJAN MD PCP Conditions or Problems Problem Name Problem Code Onset Date Status Entry Date Provider Comment Standard Description Annotate WELL CHILD EXAMINATION [id number] (SNOMED CT) Active 20 08/31/09 HINA NATARAJAN MD Well child visit Medications No information available. Medications Administered No information available. Allergies, Adverse Reactions, Alerts No information available. Results No information available. Plan of Care No information available. Procedures No information available. Vital Signs Date Name Value Unit Description BMI (Body Mass Index) 15.81 kg/m2 Body M ass Index [Ratio] BP Diastolic 58 mm[Hg] blood pressure, diastolic BP Systolic 82 mm[Hg] blood pressure, systolic Heart Rate 66 /min pulse rate E&M Height 131.44 cm height in centi meters E&M Height 51.75 [in_us] height E&M Height (Lying) 17 [in_us] infant length at Weight Measured 2.47 kg weight in kilograms Weight Measured 60 [lb_av] weight E&M Weight Measured 27.27 kg weight in ki lograms E&M
--- OUTSIDE RECORDS SUMMARY | 2019-10-11 17:58 | XMS REPORT ---
Author Author Alton Tim Organization [facility] Address [address] [place] [id number] Care Team Providers Care Molder Labels Name Role Phone Benja Tim Unavailable PROBLEMS ALLERGIES No Information ENCOUNTERS IMMUNIZATIONS No Known Immunizations SOCIAL HISTORY No smoking Hx information available REASON FOR VISIT PLAN OF CARE VITAL SIGNS MEDICATIONS RESULTS No Results PROCEDURES No Known procedures INSTRUCTIONS MEDICATIONS ADMINISTERED No Known Medications MEDICAL (GENERAL) HISTORY
--- OUTSIDE RECORDS SUMMARY | 2019-10-11 17:58 | XMS REPORT ---
Author Author Alton Tim Organization [facility] Address [address] [place] [id number] Care Team Providers Care Continuous Improvement Manager Name Role Phone Benja Tim Unavailable PROBLEMS Type Condition ICD9-CM Code [id number] Code Onset Dates Condition S tatus SNOMED Code Problem Chronic depression F32.9 Active 1 43592451 Problem Underweight R63.6 Active 23895807 6 Problem Attention deficit disorder (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 Active 00250199 ALLERGIES No Known Allergies ENCOUNTERS Encounter Location Date Diagnosis [facility] [address] [place] [address] Mar, [facility] [address] [place] [address] Dec, Attention deficit disorder (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 ; Pilonidal cyst L05.91 and Tinea cruris B35.6 [facility] [address] [place] [address] Oct, UNKNOWN Sep, [facility] [address] [place] [address] Sep, Attention deficit disorder (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 [facility] [address] [place] [address] Aug, Attention deficit disorder (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 and Pilonidal cyst L05.91 [facility] [address] [place] [address] Apr, Heart palpitations R00.2 and Chest pain at rest R07.9 [facility] [address] [place] [address] Apr, Chest pain at rest R07.9 and Heart palpitations R00.2 [facility] [address] [place] [address] Apr, Attention deficit disorder (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 and Acute left-sided low back pain without sciatica M54.5 [facility] [address] [place] [address] Feb, Attention deficit disorder (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 [facility] [address] [place] [address] Dec, Attention deficit disorder (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 and Underweight R63.6 [facility] [address] [place] [address] Sep, Attention deficit disorder (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 and Underweight R63.6 [facility] [address] [place] [address] Jul, Attention deficit disorder (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 [facility] [address] [place] [address] June, Attention deficit disorder (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 and Underweight R63.6 [facility] [address] [place] [address] May, Attention deficit disorder (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 and Acute nasopharyngitis J00 [facility] [address] [place] [address] Mar, Attention deficit disorder (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 [facility] [address] [place] [address] Mar, [facility] [address] [place] [address] Mar, [facility] [address] [place] [address] Feb, [facility] [address] [place] [address] Feb, Acute bronchitis due to other specified organisms J20.8 ; Attention deficit disorder (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 and Chronic depression F32.9 [facility] [address] [place] [address] Feb, Attention deficit disorder (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 and Chronic depression F32.9 [facility] [address] [place] [address] Jan, Attention deficit disorder (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 and Chronic depression F32.9 [facility] [address] [place] [address] Dec, [facility] [place] [address] [place] [address] Dec, Acute bronchitis due to other specified organisms J20.8 IMMUNIZATIONS No Known Immunizations SOCIAL HISTORY Never Assessed REASON FOR VISIT Refill PLAN OF CARE Activity Details Follow Up 3 months,F/U if not better i n 2-3 days, resolved in 1 week Reason: VITAL SIGNS Height 66 in 2019-01-12 Weight 119 lbs 2019-01-12 BMI 19.21 kg/m2 2019-01-12 Temperature 98.2 degrees Fahrenheit 2019-01-12 Heart Rate 65 /min 2019-01-12 Respiratory Rate 16 /min 2019-01-12 Oximetry 96 % 2019-01-12 Blood pressure systolic 130 mm Hg 2019-01-12 Blood pressure diastolic 83 mm Hg 2019-01-12 MEDICATIONS Medication Instructions Dosage Frequency Start Date End Date Duration S tacos Cyclobenzaprine HCl 10 MG Orally Three times a day 1/2-1 tablet as needed 8h 15 Apr, 2018 Not-Taking Tramadol HCl 50 MG Orally Once a day 1 tablet as needed 24h Aug, Not-Taking Albuterol Sulfate HFA 108 (90 Base) MCG/ACT Inhalation every 6 hrs 2 puffs as needed 6h Active Adderall 20 MG Orally twice a day 1 tablet (to fill 01/12/19 or lat er) 12h Dec, 30 days Active Timolol Maleate 0.5 % Ophthalmic Once a day as directed 24h Not-Taking [place] 5-325 MG Orally every 6 hrs 1 tablet as needed 6h Dec, 9 Active Adderall 20 MG Orally twice a day 1 tablet (to fill 03/14/19 or late r) 12h Dec, 30 days Active Adderall 20 MG Orally twice a day 1 tablet (to fill 02/11/19 or lat er) 12h Dec, 30 days Active Fluconazole 100 MG Orally Once a day 2 stat then 1 tablet daily 24h Dec, Jan, 14 days Active Cephalexin 500 MG Orally every 12 hrs 1 capsule 12h Not-Taking RESULTS No Results PROCEDURES No Known procedures INSTRUCTIONS MEDICATIONS ADMINISTERED No Known Medications MEDICAL (GENERAL) HISTORY Type Description Date Medical History asthma Surgical History cyst removal from back 09/01/18 Surgical History Bascon Cleft Lift 12/2018 Hospitalization History increased heart rate 04/2018
--- OUTSIDE RECORDS SUMMARY | 2019-10-11 17:58 | XMS REPORT ---
Author Author Alton Tim Organization [facility] Address [address] [place] [address] Care Team Providers Care Financial Analysis Advisor Name Role Phone Benja Tim Unavailable PROBLEMS Type Condition ICD9-CM Code [id number] Code Onset Dates Condition S tatus SNOMED Code Problem Chronic depression F32.9 Active 1 04656635 Problem Underweight R63.6 Active 81066678 6 Problem Attention deficit disorder (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 Active 56446577 ALLERGIES No Information ENCOUNTERS Encounter Location Date Diagnosis [facility] [address] [place] [address] June, UNKNOWN Apr, [facility] [address] [place] [address] Apr, [facility] [address] [place] [address] Mar, Attention deficit disorder (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 [facility] [address] [place] [address] Dec, Attention deficit disorder (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 ; Pilonidal cyst L05.91 and Tinea cruris B35.6 [facility] [address] [place] [address] Oct, UNKNOWN Sep, [facility] [place] [address] Sep, Attention deficit disorder (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 [facility] [address] [place] [address] Aug, Attention deficit disorder (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 and Pilonidal cyst L05.91 [facility] [address] [place] [address] Apr, Heart palpitations R00.2 and Chest pain at rest R07.9 [facility] [address] [place] [address] Apr, Chest pain at rest R07.9 and Heart palpitations R00.2 [facility] [address] [place] [address] Apr, Attention deficit disorder (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 and Acute left-sided low back pain without sciatica M54.5 [facility] [address] [place] [address] Feb, Attention deficit disorder (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 [facility] [address] [place] [address] Dec, Attention deficit disorder (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 and Underweight R63.6 [facility] [address] [place] [address] Sep, Attention deficit disorder (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 and Underweight R63.6 [facility] [address] [place] [address] Jul, Attention deficit disorder (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 [facility] [address] [place] [address] June, Attention deficit disorder (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 and Underweight R63.6 [facility] [address] [place] [address] May, Attention deficit disorder (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 and Acute nasopharyngitis J00 [facility] [address] [place] [address] Mar, Attention deficit disorder (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 [facility] [address] [place] [address] Mar, [facility] [address] [place] [address] Mar, [facility] [address] [place] [address] Feb, [facility] [address] [place] [address] Feb, Acute bronchitis due to other specified organisms J20.8 ; Attention deficit disorder (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 and Chronic depression F32.9 [facility] [address] [place] [address] Feb, Attention deficit disorder (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 and Chronic depression F32.9 [facility] [address] [place] [address] Jan, Attention deficit disorder (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 and Chronic depression F32.9 [facility] [address] [place] [address] Dec, [facility] [address] [place] [address] Dec, Acute bronchitis due to other specified organisms J20.8 IMMUNIZATIONS No Known Immunizations SOCIAL HISTORY Never Assessed REASON FOR VISIT ePrescription CancelRx response PLAN OF CARE VITAL SIGNS MEDICATIONS Unknown Medications RESULTS No Results PROCEDURES No Known procedures INSTRUCTIONS MEDICATIONS ADMINISTERED No Known Medications MEDICAL (GENERAL) HISTORY Type Description Date Medical History asthma Surgical History cyst removal from back 07/10/19 Surgical History Bascon Cleft Lift 12/2018 Hospitalization History increased heart rate 04/2018
--- OUTSIDE RECORDS SUMMARY | 2019-10-11 17:58 | XMS REPORT ---
Author Author Alton Tim Organization [facility] Address [facility] [place], [place] [address] Care Team Providers Care Alternative Financing Specialist Name Role Phone Benja Tim Unavailable PROBLEMS Type Condition ICD9-CM Code [id number] Code Onset Dates Condition S tatus SNOMED Code Problem Chronic depression F32.9 Active 1 34428286 Problem Underweight R63.6 Active 18710686 6 Problem Attention deficit disorder (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 Active 85786761 ALLERGIES No Known Allergies ENCOUNTERS Encounter Location Date Diagnosis [facility] [address] [place] [address] Nov, UNKNOWN Sep, [facility] [address] [place] [address] Sep, Attention deficit disorder (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 [facility] [address] [place] [address] 701[address] Aug, Attention deficit disorder (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 and Pilonidal cyst L05.91 [facility] [address] [place] [address] Apr, Heart palpitations R00.2 and Chest pain at rest R07.9 [facility] [address] [place] [address] Apr, Chest pain at rest R07.9 and Heart palpitations R00.2 [facility] [address] [place] [address] 9[address] 14 Apr, 2018 Attention deficit disorder (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 and Acute left-sided low back pain without sciatica M54.5 [facility] [address] [place] [address] Feb, Attention deficit disorder (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 [facility] [address] [place] [address] 95[address] Dec, Attention deficit disorder (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 and Underweight R63.6 [facility] [address] [place] [address] 81307 Sep, Attention deficit disorder (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 and Underweight R63.6 [facility] [address] [place] [address] 385[address] Jul, Attention deficit disorder (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 [facility] [address] [place] [address] June, Attention deficit disorder (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 and Underweight R63.6 [facility] [address] [place] [address] May, Attention deficit disorder (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 and Acute nasopharyngitis J00 [facility] [address] [place] [address] 95[address] Mar, Attention deficit disorder (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 [facility] [address] [place] [address] Mar, [facility] [address] [place] [address] Mar, [facility] [place] [address] Feb, [facility] [place] [address] Feb, Acute bronchitis due to other specified organisms J20.8 ; Attention deficit disorder (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 and Chronic depression F32.9 [facility] [address] [place] [address] 83[address] Feb, Attention deficit disorder (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 and Chronic depression F32.9 [facility] [address] [place] [address] 833[address] Jan, Attention deficit disorder (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 and Chronic depression F32.9 [facility] [address] [place] [address] Dec, [facility] [place] [address] [place] [address] Dec, Acute bronchitis due to other specified organisms J20.8 IMMUNIZATIONS No Known Immunizations SOCIAL HISTORY Never Assessed REASON FOR VISIT Follow Up PLAN OF CARE Activity Details Follow Up 3 Months Reason: VITAL SIGNS Height 66 in 2018-09-02 Weight 124.4 lbs 2018-09-02 BMI 20.08 kg/m2 2018-09-02 Temperature 98.5 degrees Fahrenheit 2018-09-02 Heart Rate 72 /min 2018-09-02 Respiratory Rate 16 /min 2018-09-02 Oximetry 96 % 2018-09-02 Blood pressure systolic 128 mm Hg 2018-09-02 Blood pressure diastolic 84 mm Hg 2018-09-02 MEDICATIONS Medication Instructions Dosage Frequency Start Date End Date Duration S tatus Cephalexin 500 MG Orally every 12 hrs 1 capsule 12h Active Adderall 20 MG Orally twice a day 1 tablet (to fill 09/06/18 or late r) 12h Aug, 30 days Active Albuterol Sulfate HFA 108 (90 Base) MCG/ACT Inhalation every 6 hrs 2 puffs as needed 6h Active Timolol Maleate 0.5 % Ophthalmic Once a day as directed 24h Active Cyclobenzaprine HCl 10 MG Orally Three times a day 1/2-1 tablet as needed 8h Apr, Active Tramadol HCl 50 MG Orally Once a day 1 tablet as needed 24h Aug, Active Adderall 20 MG Orally twice a day 1 tablet (to fill 10/07/18 or late r) 12h Aug, 30 days Active Adderall 20 MG Orally twice a day 1 tablet (to fill 11/07/18 or late r) 12h Aug, 30 days Active RESULTS No Results PROCEDURES No Known procedures INSTRUCTIONS MEDICATIONS ADMINISTERED No Known Medications MEDICAL (GENERAL) HISTORY Type Description Date Medical History asthma Surgical History cyst removal from back 09/01/18 Hospitalization History increased heart rate 04/2018
--- OUTSIDE RECORDS SUMMARY | 2019-10-11 17:58 | XMS REPORT ---
Author Author Alton Tim Organization [facility] Address [address] [place] [address] Care Team Providers Care Silk Worker Name Role Phone Benja Tim Unavailable PROBLEMS Type Condition ICD9-CM Code [id number] Code Onset Dates Condition S tatus SNOMED Code Problem Underweight R63.6 Active 15187887 6 Problem Muscle spasm M62.838 Active 8215248 6 Problem Attention deficit disorder (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 Active 98451867 Problem Chronic depression F32.9 Active 1 [id number] ALLERGIES No Known Allergies ENCOUNTERS Encounter [place] [facility] [place] [address] [place] [address] 04 July, 2 020 Attention deficit disorder (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 and Muscle spasm M62.838 UNKNOWN 17 Apr, 2019 [facility] [address] [place] [address] 17 Apr, 2 020 [facility] [place] [address] [place] [address] Mar, 2 020 Attention deficit disorder (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 [facility] [address] [place] [address] Dec, 2 019 Attention deficit disorder (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 ; Pilonidal cyst L05.91 and Tinea cruris B35.6 [facility] [address] [place] [address] 05 Oct, 2 019 UNKNOWN Sep, [facility] [address] [place] [address] Sep, 2 019 Attention deficit disorder (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 [facility] [address] [place] [address] 11 Aug, 2 019 Attention deficit disorder (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 and Pilonidal cyst L05.91 [facility] [address] [place] [address] Apr, 2 019 Heart palpitations R00.2 and Chest pain at rest R07.9 [facility] [address] [place] [address] 25 Mar, 2 019 Chest pain at rest R07.9 and Heart palpitations R00.2 [facility] [address] [facility] [place] [address] 14 Mar, 2 019 Attention deficit disorder (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 and Acute left-sided low back pain without sciatica M54.5 [facility] [address] [facility] [place] [address] 15 Yadiel, 2 019 Attention deficit disorder (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 [facility] [address] [facility] [place] [address] 06 Nov, 2 018 Attention deficit disorder (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 and Underweight R63.6 [facility] [address] [facility] [place] [address] 06 Sep, 2 018 Attention deficit disorder (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 and Underweight R63.6 [facility] [address] [facility] [place] [address] 01 Arturo, 2 018 Attention deficit disorder (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 [facility] [address] [facility] [place] [address] 05 June, 2 018 Attention deficit disorder (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 and Underweight R63.6 [facility] [address] [place] [address] 04 May, 2 018 Attention deficit disorder (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 and Acute nasopharyngitis J00 [facility] [address] [place] [address] 26 Feb, 2 018 Attention deficit disorder (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 [facility] [address] [place] [address] 08 Feb, 2 018 [facility] [address] [place] [address] 07 Feb, 2 018 [facility] [address] [place] [address] 27 Yadiel, 2 018 [facility] [address] [place] [address] 23 Yadiel, 2 018 Acute bronchitis due to other specified organisms J20.8 ; Attention deficit disorder (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 and Chronic depression F32.9 [facility] [address] [place] [address] 08 Yadiel, 2 018 Attention deficit disorder (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 and Chronic depression F32.9 [facility] [address] [facility] [place] [address] 20 Jan, 2 017 Attention deficit disorder (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 and Chronic depression F32.9 [facility] [address] [place] [address] 28 Dec, 2 017 [facility] [address] [place] [address] 18 Dec, 2 017 Acute bronchitis due to other specified organisms J20.8 IMMUNIZATIONS No Known Immunizations SOCIAL HISTORY Never Assessed REASON FOR VISIT 3 mo f/u PLAN OF CARE Activity Details Follow Up 3 Months Reason: VITAL SIGNS MEDICATIONS Medication Instructions Dosage Frequency Start Date End Date Duration S tacos Tramadol HCl 50 MG Orally Once a day 1 tablet as needed 24h Aug, Not-Taking Adderall 20 MG Orally twice a day 1 tablet (to fill 08/13/19 or late r) 12h June, 30 days Active Cyclobenzaprine HCl 10 MG Orally Three times a day 1/2-1 tablet as needed 8h Apr, Active Valencia 5-325 MG Orally every 6 hrs 1 tablet as needed 6h Dec, 9 Not-Taking Adderall 20 MG Orally twice a day 1 tablet (to fill 09/12/19 or late r) 12h June, 30 days Active Timolol Maleate 0.5 % Ophthalmic Once a day as directed 24h Not-Taking Albuterol Sulfate HFA 108 (90 Base) MCG/ACT Inhalation every 6 hrs 2 puffs as needed 6h Active Cephalexin 500 MG Orally every 12 hrs 1 capsule 12h Not-Taking Adderall 20 MG Orally twice a day 1 tablet (to fill 07/13/19 or late r) 12h June, 30 days Active RESULTS No Results PROCEDURES No Known procedures INSTRUCTIONS MEDICATIONS ADMINISTERED No Known Medications MEDICAL (GENERAL) HISTORY Type Description Date Medical History asthma Surgical History cyst removal from back 09/01/18 Surgical History Bascon Cleft Lift 12/2018 Hospitalization History increased heart rate 04/2018
--- OUTSIDE RECORDS SUMMARY | 2019-10-11 17:58 | XMS REPORT ---
Author Author Alton Tim Organization [facility] Address [facility] [place], [place] [address] Care Team Providers Care Bench Scientist Name Role Phone Benja Tim Unavailable PROBLEMS Type Condition ICD9-CM Code [id number] Code Onset Dates Condition S tatus SNOMED Code Problem Chronic depression F32.9 Active 1 17445999 Problem Underweight R63.6 Active 41397539 6 Problem Attention deficit disorder (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 Active 93247446 ALLERGIES No Information ENCOUNTERS Encounter Location Date Diagnosis [facility] [address] [place] [address] Nov, UNKNOWN Sep, [facility] [address] [place] [address] Sep, Attention deficit disorder (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 [facility] [address] [place] [address] 11943 Aug, Attention deficit disorder (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 and Pilonidal cyst L05.91 [facility] [address] [place] [address] 98399 Apr, Heart palpitations R00.2 and Chest pain at rest R07.9 [facility] [address] [place] [address] 46620 Apr, Chest pain at rest R07.9 and Heart palpitations R00.2 [facility] [address] [place] [address] 16715 Apr, Attention deficit disorder (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 and Acute left-sided low back pain without sciatica M54.5 [facility] [place] [address] [place] [address] Feb, Attention deficit disorder (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 [facility] [address] [place] [address] 20069 Dec, Attention deficit disorder (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 and Underweight R63.6 [facility] [address] [place] [address] 64[address] Sep, Attention deficit disorder (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 and Underweight R63.6 [facility] [address] [place] [address]220 Jul, Attention deficit disorder (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 [facility] [address] [place] [address] June, Attention deficit disorder (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 and Underweight R63.6 [facility] [address] [place] [address] May, Attention deficit disorder (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 and Acute nasopharyngitis J00 [facility] [address] [place] [address] Mar, Attention deficit disorder (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 [facility] [address] [place] [address] 08 Mar, 2017 [facility] [address] [place] [address] Mar, [facility] [address] [place] [address] Feb, [facility] [address] [place] [address] Feb, Acute bronchitis due to other specified organisms J20.8 ; Attention deficit disorder (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 and Chronic depression F32.9 [facility] [address] [place] [address] Feb, Attention deficit disorder (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 and Chronic depression F32.9 [facility] [address] [place] [address] Jan, Attention deficit disorder (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 and Chronic depression F32.9 [facility] [address] [place] [address] Dec, [facility] [address] [place] [address] Dec, Acute bronchitis due to other specified [...]
--- OUTSIDE RECORDS SUMMARY | 2019-10-11 17:58 | XMS REPORT ---
Author Author Alton Piedra Organization [facility] Address [address] [place] [address] Care Team Providers Care Pan Pusher Name Role Phone Dorene Piedra Unavailable PROBLEMS Type Condition ICD9-CM Code [id number] Code Onset Dates Condition S tatus SNOMED Code Problem Chronic depression F32.9 Active 1 91693303 Problem Underweight R63.6 Active 48315062 6 Problem Attention deficit disorder (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 Active 85485425 ALLERGIES No Information ENCOUNTERS Encounter Location Date Diagnosis [facility] [address] [place] [address] Nov, [facility] [address] [place] [address] Oct, UNKNOWN Sep, [facility] [address] [place] [address] Sep, Attention deficit disorder (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 [facility] [address] [place] [address] Aug, Attention deficit disorder (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 and Pilonidal cyst L05.91 [facility] [place] [address] [place] [address] Apr, Heart palpitations R00.2 and Chest pain at rest R07.9 [facility] [address] [place] [address] Apr, Chest pain at rest R07.9 and Heart palpitations R00.2 [facility] [address] [place] [address] Apr, Attention deficit disorder (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 and Acute left-sided low back pain without sciatica M54.5 [facility] [address] [place] [address] Feb, Attention deficit disorder (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 [facility] [address] [place] [address] Dec, Attention deficit disorder (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 and Underweight R63.6 [facility] [address] [place] [address] Sep, Attention deficit disorder (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 and Underweight R63.6 [facility] [address] [place] [address] Jul, Attention deficit disorder (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 [facility] [place] [address] June, Attention deficit disorder (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 and Underweight R63.6 [facility] [place] [address] May, Attention deficit disorder (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 and Acute nasopharyngitis J00 [facility] [address] [place] [address] Mar, Attention deficit disorder (ADD) without hyperactivity F98.8 [facility] [place] [address] Mar, [facility] [place] [address] Mar, [facility] [place] [address] Feb, [facility] [place] [address] Feb, Acute bronchitis due to other specified organisms J20.8 ; Attention deficit disorder (ADD) without hyperactivity F98.8 and Chronic depression F32.9 [facility] [address] [place] [address] Feb, Attention deficit disorder (ADD) without hyperactivity F98.8 and Chronic depression F32.9 [facility] [place] [address] Jan, Attention deficit disorder (ADD) without hyperactivity F98.8 and Chronic depression F32.9 [facility] [address] [place] [address] Dec, [facility] [place] [address] Dec, Acute bronchitis due to other specified organisms J20.8 IMMUNIZATIONS No Known Immunizations SOCIAL HISTORY Never Assessed REASON FOR VISIT PLAN OF CARE VITAL SIGNS MEDICATIONS Medication Instructions Dosage Frequency Start Date End Date Duration S tatus Adderall 20 MG Orally twice a day 1 tablet (to fill 10/28/18 or later ) 12h Oct, 30 days Active RESULTS No Results PROCEDURES No Known procedures INSTRUCTIONS MEDICATIONS ADMINISTERED No Known Medications MEDICAL (GENERAL) HISTORY Type Description Date Medical History asthma Surgical History cyst removal from back 09/01/18 Hospitalization History increased heart rate 04/2018
--- OUTSIDE RECORDS SUMMARY | 2019-10-11 17:59 | XMS REPORT | Continuity of Care Document ---
Author Author [facility] Campbell Organization [employer] Address Unknown Phone Unavailable Allergies Active Description Code Type Severity Reaction Onset Reported/Identified Relationship to Patient Clinical Status Yes No Known Drug Allergies [id number] Drug Allergy Unknown N/A 05/29/2018 Medications Medication Packaging Start Date St op Date Route Dosage Sig amphetamine-dextroamphetamine 10/03/2019 PO 20 mg / 1 tab cyclobenzaprine 10/03/2019 PO 10 mg / 1 tab amphetamine-dextroamphetamine 10/03/2019 PO 20 mg / 1 tab amphetamine-dextroamphetamine 10/03/2019 PO 20 mg / 1 tab cyclobenzaprine 10/07/2019 PO 10 mg / 1 tab Problems Date Dx Coded Attending Type Code Diagnosis Diagnosed By 05/29/2018 SHAYNE WAN DO Ot J45.909 UNSPECIFIED ASTHMA, UNCOMPLICATED 05/29/2018 [place] SHAYNE GARVEY Ot S61.210 A LACERATION W/O FB OF R IDX FNGR W/O IDALIA 05/29/2018 SHAYNE WAN DO Ot W26.8XX A CONTACT WITH OTHER SHARP OBJECT(S), NEC, 05/29/2018 SHAYNE WAN DO Ot Z23 ENCOUNTER FOR IMMUNIZATION 06/01/2018 SHAYNE WAN DO Ot J45.909 UNSPECIFIED ASTHMA, UNCOMPLICATED 06/01/2018 SHAYNE WAN DO Ot S61.210 A LACERATION W/O FB OF R IDX FNGR W/O IDALIA 06/01/2018 SHAYNE WAN DO Ot W26.8XX A CONTACT WITH OTHER SHARP OBJECT(S), [facility], 06/01/2018 SHAYNE WAN DO Ot Z23 ENCOUNTER FOR IMMUNIZATION Procedures There is no data. Results There is no data. Encounters ACCT No. Visit Date/Time Discharge Status Pt. Type Provider Facility Loc./Unit Complaint [id number] 10/03/2019 10:08:16 0 23:59:59 DIS Outpatient Benja TimED medication refill [id number] 05/29/2018 01:53:00 019 03:35:00 DIS Emergency SHAYNE WAN DO [facility] CUT FINGER ON [facility] [facility]
== END 2019-10-11 16:40 | disposition home or self-care (01) ==
LOC: EDUNIT# 15:22 → ER 15:23
DX: S61.217A Laceration without foreign body of left little finger without damage to nail, initial encounter (principal); F17.200 Nicotine dependence, unspecified, uncomplicated; W25.XXXA Contact with sharp glass, initial encounter
CPT/HCPCS: 12001